=== PATIENT | male | born 1975 | race Caucasian/White ===

== ENCOUNTER 2025-10-03 09:56 | Outpatient (AMB) | payer OTHER, SELFPAY ==
--- NOTE | 2025-10-03 10:06 | A.OFFPC_ITS ---
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 // Cholesterol Intake Note: New patient presents with concerns about cholesterol Sports Umpire Required: No Accompanied by: Self / Same As Patient Allergies amoxicillin Allergy (Intermediate, Verified 10/03/25 10:11) Hives Tobacco use date assessed: 10/03/25 Dental Screening Dental Screen Date: 10/03/25 Did you have a dental visit in the last 12 months?: No Did you have a dental problem in the last 6 months where you did not have access to dental care?: No Was dental information given to patient?: Patient has dentist HPI HPI Comments History of Present Illness Details History of Present Illness The patient is a 50 year old individual presenting to [facility] with a new primary care physician. History of umbilical hernia repair: The patient has a history of an umbilical hernia repair at an unspecified time. The patient reports that no mass was found during the procedure, only a stone type thing. The patient notes the area has shifted and is a cosmetic issue, but it does not cause any pain. Colon cancer screening: The patient is 50 years old and has never had a colonoscopy but would like to undergo screening. The patient denies any family history of colon cancer or polyps. History of Lyme disease: The patient reports a history of severe Lyme disease in 2011, which was treated with doxycycline. The diagnosis was delayed for 10 days, during which time meningitis was considered. The patient experienced excruciating pain from head to toe and in every joint, preventing sleep for seven days. From 2011 to 2019, the patient would experience flare-ups, where a common cold would escalate into more severe, flu-like symptoms. The patient has not had a significant flare-up in a long time. Tobacco Use: The patient reports smoking cigars for the past three years. The patient has a prior history of smoking half a pack of cigarettes per day for 15-20 years, but quit a long time ago in 2007. Surgical History: - Umbilical hernia repair Medications: - The patient denies taking any medicati ons. Social History: - Tobacco Use: The patient smokes cigars occasionally and has been for about three years. - The patient is a former cigarette smok er, having smoked for 15-20 years before quitting in 2007. - Occupation: The patient works in [employer] a [employer] from home and describes the job as mostly sedentary. - Exercise: The patient reports getting up to do jumping jacks during the w orkday. Family History: - Mother: History of unspecified cancer, but has been in remission for 20 years; she is 85 years old. - Father: No history of cancer. - Siblings: A sister had a normal colono scopy at age 40 or 45. - Denies any family history of colon can cer or polyps. Past Medical History - Lyme Disease: Diagnosed in 2011, treat ed with doxycycline. The patient experienced recurrent flare-ups until about 2019. - Lymphadenitis: Had an infected lymph n ode which required drainage. - Denies any history of hospitalization other than for surgery. Health Maintenance - Colon Cancer Screening: The patient is 50 and is due for screening. - Lab Work: Comprehensive labs will be d rawn to establish a baseline of health. [facility] Medical History (Updated 10/03/25 @ 10:42 by Eric Diggs MD) Tobacco use History of Lyme disease Umbilical hernia Surgical History (Updated 10/03/25 @ 10:42 by Eric Diggs MD) H/O umbilical hernia repair Family History (Updated 10/03/25 @ 10:15 by Ganesh Woodson CMA) Mother Colon cancer Mother No problems noted. 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 1. Little interest or pleasure in doing things: not at all 2. Feeling down, depressed, or hopeless: not at all 3. Trouble falling or staying asleep, or sleeping too much: several days 4. Feeling tired or having little energy: several days 5. Poor appetite or overeating: not at all 6. Feeling bad about yourself - or that you are a failure or have let yourself or your family down: not at all 7. Trouble concentrating on things, such as reading the newspaper or watching television: not at all 8. Moving or speaking so slowly that other people could have noticed. Or the opposite - being so fidgety or restless that you have been moving around a lot more than usual: not at all 9. Thoughts that you would be better off or of hurting yourself in some way: not at all Total score: 2 Depression Screening Interpretation: Negative Depression Screening Done: Yes 24463 - PHQ-9 Billing: Yes Source: Developed by Drs. Hood Chong, Shilpa Silva, Ryan Alcaraz and colleagues, with an educational tia from [employer]. Thrive Questionnaire Date Thrive assessed: 10/03/25 I am a: Patient What is your living situation today?: I have a steady place to live Within the past 12 months, did the food you bought not last and you didn't have the money to get more?: Never true Within the past 12 months, did you worry whether your food would run out before you got money to buy more?: Never true Do you have trouble paying for medicines?: No Do you have trouble getting transportation to medical appointments?: No Do you have trouble paying your heating and electricity bill?: No Do you have trouble taking care of your child, family member or friend?: No Do you have trouble with day-to-day activities such as bathing, preparing meals, shopping, managing finances, etc.?: No Are you currently unemployed and looking for a job?: No Are you interested in more education?: Yes Please select the resources that you would like help with: None Currently or been in a relationship where the following occur: No concerns repo rted THRIVE Score: 0 AUDIT C Alcohol Use Questionnaire (AUDIT-C) 1. How often do you have a drink containing alcohol?: 2-3 times a week 2. How many drinks containing alcohol do you have on a typical day when you are drinking?: 1 or 2 3. How often do you have six or more drinks on one occasion?: Weekly Total Score: 6 CHECO-7 AMB Questionnaire CHECO-7 Date CHECO - 7 assessed: 10/03/25 Feeling nervous, anxious, or on edge: 0 = Not at all Not being able to stop or control worryin = Not at all Worrying too much about different things: 0 = Not at all Trouble relaxin = Not at all Being so restless that it is hard to sit still: 0 = Not at all Becoming easily annoyed or irritable: 0 = Not at all Feeling afraid as if something awful might happen: 0 = Not at all Total CHECO-7 score (0-4 normal; 5-9 mild; 10-14 moderate; 15-21 severe): 0 Source: Developed by Drs. Hood Chong, Shilpa Silva, Ryan Alcaraz and colleagues, with an educational tia from [employer]. CHECO-7 Assessment Billing CHECO-7 Assessment Tool: CHECO-7 Assessment 27533 Review of Systems Narrative Review of Systems - General: Denies current pain. - Neurological: Reports a history of severe headaches and generalized joint pain associated with a past Lyme disease diagnosis. - Sleep: Reports waking up during the night but is able to fall back asleep. - Gastrointestinal: Reports normal bowel movements. Denies constipation. - Genitourinary: Reports normal urination. 10-point ROS reviewed and negative except as noted in HPI Physical exam (Primary Care) Vital Signs: Last Vital Signs Temp 97.6 F 10/03/25 10:15 Pulse 90 10/03/25 10:15 Resp 16 10/03/25 10:15 BP 115/72 10/03/25 10:15 Pulse Ox 97 10/03/25 10:15 Oxygen Delivery Method Room Air 10/03/25 10:15 BMI result Body Mass Index 23.9 Tobacco/Smoking Status: Tobacco use Status Tobacco use date assessed 10/03/25 10/03/25 10:18 Patient Tobacco Use Status Never used Tobacco 10/03/25 10:18 e-Cigarette/Vaping Use Never Used 10/03/25 10:18 PHQ-9: PHQ-9 Score PHQ-9: Total score 2 10/03/25 10:10 Depression Screening Interpretation: Negative Thrive Assessment: Date of Thrive Assessment Date Thrive assessed 10/03/25 10/03/25 10:10 Currently or been in a relationship where the following occur: No concerns reported Narrative Physical Exam General: Well-appearing, in no acute distress. Vital signs: Within normal limits. HEENT: Normocephalic, atraumatic. PERRLA, EOMI. Conjunctiva clear, sclera anicteric. Oropharynx clear, mucous membranes moist. TMs intact bilaterally. Neck: Supple, no lymphadenopathy, no thyromegaly, no JVD or carotid bruits. A small lymph node noted on the left side. Cardiovascular: RRR, normal S1/S2, no murmurs, rubs, or gallops. Peripheral pulses 2+ and symmetric. No edema. Varicose veins noted on the left leg and ankle. Respiratory: Lungs clear to auscultation bilaterally, no wheezes, rales, or rhonchi. Normal effort. Abdomen: Soft, non-tender, non-distended. Normoactive bowel sounds. No hepatosplenomegaly, no masses. Umbilical hernia repair site noted. MSK: Full range of motion, no joint swelling or deformity. Normal gait. Skin: Warm, dry, intact. No rashes, lesions, or pallor. Neuro: Alert and oriented x3. Cranial nerves II-XII intact. Strength 5/5 throughout. Sensation intact. Reflexes 2+ symmetric. Normal coordination and gait. Psych: Appropriate mood and affect. Normal judgment and insight. Coding Level of Care Code New Pt Level 4 (39959) Diagnoses Umbilical hernia K42.9 History of Lyme disease Z86.19 Tobacco use Z72.0 H/O umbilical hernia repair Z98.890; Z87.19 Screening for malignant neoplasm of colon Z12.11 Additional Codes CHECO-7 Assessment Billing - CHECO-7 Assessment Tool: CHECO-7 Assessment 74761 ([id number]) PHQ-9 - 06105 - PHQ-9 Billing: Yes ([id number]) Assessment & Plan Assessment & Plan (1) Umbilical hernia: Code(s): K42.9 - Umbilical hernia without obstruction or gangrene Category: Medical (2) History of Lyme disease: Code(s): Z86.19 - Personal history of other infectious and parasitic diseases Category: Medical (3) Tobacco use: Code(s): Z72.0 - Tobacco use Category: Social Hx (4) H/O umbilical hernia repair: Code(s): Z98.890 - Other specified postprocedural states; Z87.19 - Personal history of other diseases of the digestive system Category: Surgical (5) Screening for malignant neoplasm of colon: Code(s): Z12.11 - Encounter for screening for malignant neoplasm of colon Plan Consent The options, risks, and benefits of colon cancer screening were discussed with the patient. The alternatives of a traditional colonoscopy, involving bowel preparation and sedation, and an at-home stool-based DNA test (Cologuard) were reviewed. It was explained that if the Cologuard test is positive, a full colonoscopy would then be required. The patient provided verbal consent to pr oceed with the Cologuard test. The patient also consented to comprehensive lab testing. Patient was informed and verbally consented to the use of an ambient scribe for clinic note documentation during this visit. Plan 1. Establishment Of Care And Health Maintenance - A comprehensive lab panel will be ordered, including a complete blood count, comprehensive metabolic panel, hemoglobin A1c, hepatitis B and C, HIV, a lipid panel, magnesium, syphilis screen, thyroid function, urinalysis, B12, folate, and vitamin D. - The patient will follow up in two weeks to review the lab results. 2. Colon Cancer Screening - After discussing the options of a traditional colonoscopy versus an at-home stool test, the patient chose to proceed with Cologuard. - An order for the Cologuard test has been placed. - The patient was informed that if the Cologuard test is positive, a follow-up colonoscopy will be necessary. 3. Recurrent Umbilical Hernia - The patient is bothered by the cosmetic appearance of the previous umbilical hernia repair site but denies pain. - A referral to a general surgeon for a second opinion was offered, but the patient declined at this time. 4. Tobacco Use - Acknowledged the patient's current cigar use and history of cigarette smoking. - Will continue to monitor and address at future visits. 5. Cervical Lymphadenopathy - A small left cervical lymph node was found on examination. - The planned CBC will help evaluate this finding. - The patient has a history of reactive lymphadenopathy from Lyme disease flare- ups. Discussion Notes I discussed with the patient the plan to establish care, focusing on preventative health. I reviewed the options for colon cancer screening, detailing both the traditional colonoscopy and the Cologuard at-home test. I explained that Cologuard is repeated every three years if negative, but a positive result necessitates a full colonoscopy for further evaluation. The patient understood the options and preferred to start with the Cologuard test. I informed the patient that I will be ordering a comprehensive panel of blood and urine tests to get a baseline overview of the patient's health. We will review these results at a follow-up visit in two weeks. I also addressed the patient's concern about the cosmetic appearance of a prior umbilical hernia repair and offered a referral to a general surgeon, which the patient declined at this time. Patient Instructions - Please go to the lab next door to have your blood drawn for the ordered tests. - A Cologuard test kit will be mailed to your house. Please follow the instructions provided, which include watching a short video, to collect and mail back the sample. - Please schedule a follow-up appointment in two weeks to discuss your lab results. - If you have any new concerns or issues before your next visit, please contact the office. Medical Decision Making This is a 50-year-old individual presenting [facility] care. The primary focus of the visit was on health maintenance and screening. Given the patient's age and lack of prior screening, colon cancer screening is indicated. After discussing the benefits and drawbacks of both colonoscopy and Cologuard, t he patient's preference for a non-invasive screening method was respected, and a Cologuard test was ordered. It was made clear that a positive result would require a follow-up diagnostic colonoscopy. A comprehensive lab panel was ordered to establish a baseline of the patient's health status, covering hematologic, metabolic, infectious, and nutritional markers. The patient's history of Lyme disease and a newly palpated left cervical lymph node will be considered in the context of the CBC results. The patient's cosmetic concern regarding a prior umbilical hernia repair was acknowledged; as the patient is asymptomatic and does not desire intervention currently, a watchful waiting approach is appropriate. The patient's ongoing tobacco use was noted and will be a point for discussion and potential intervention in future visits. Total Time Statement 30 min Total time spent caring for the patient today includes pre-visit chart review, documentation, review of laboratory and diagnostic imaging results, medication reconciliation, medically necessary evaluation, counseling on diagnoses, care coordination, ordering appropriate tests and medications, review of tests performed by other providers, reporting test results to the patient, and communication with other healthcare providers. Orders: Orders Hepatitis B Surface Antigen Today Z13.9 - Encounter for screening, unspecified Syphilis Screen Today Z13.9 - Encounter for screening, unspecified Comprehensive Met. Panel Today Z13.9 - Encounter for screening, unspecified HIV Ab/Ag Today Z13.9 - Encounter for screening, unspecified Vitamin D 1,25 dihydroxy Today Z13.9 - Encounter for screening, unspecified Hepatitis B Surface Antibody Today Z13.9 - Encounter for screening, unspecified Complete Blood Count Auto Diff Today Z13.9 - Encounter for screening, unspecified Hepatitis C Antibody Today Z13.9 - Encounter for screening, unspecified TSH reflex Free T4 Today Z13.9 - Encounter for screening, unspecified UA CC w/rflx Micro + Cult Today Z13.9 - Encounter for screening, unspecified Lipid Panel Today Z13.9 - Encounter for screening, unspecified Vitamin B12 and Folate Today Z13.9 - Encounter for screening, unspecified Hemoglobin A1c Today Z13.9 - Encounter for screening, unspecified Magnesium Today Z13.9 - Encounter for screening, unspecified Referrals Cologuard Test Z12.11 - Encounter for screening for malignant neoplasm of colon, Z12.12 - Encounter for screening for malignant neoplasm of rectum
[2025-10-03 10:15] VITALS: BP 115/72; PULSE 90; RESP 16; TEMP 36.4; O2SAT 97; BMI 23.9
== END 2025-10-03 10:35 | disposition home or self-care (01) ==
LOC: HO.HMCFMS 09:57
PROVIDERS: PCP Student in an Organized Health Care Education/Training Program; Visit Provider Student in an Organized Health Care Education/Training Program
DX: K42.9 Umbilical hernia without obstruction or gangrene (principal); Z86.19 Personal history of other infectious and parasitic diseases; Z72.0 Tobacco use; Z98.890 Other specified postprocedural states; Z87.19 Personal history of other diseases of the digestive system; Z12.11 Encounter for screening for malignant neoplasm of colon

== ENCOUNTER 2025-10-03 09:56 | Outpatient (REF) | payer OTHER, SELFPAY ==
[2025-10-03 13:16] LABS: MANUAL DIFF FLAG NO
[2025-10-03 13:22] LABS: Hematocrit 49.0 % (42.0-52.0); Hemoglobin 16.3 g/dl (14.0-18.0); Imm Gran Abs Auto 0.01 X10*3/uL (0.00-0.03); Imm Gran Pct Auto 0.1 % (0.0-0.4); Lymphocytes Absolute Auto 2.4 X10*3/uL (1.2-4.9); Mean Corpuscular HGB Conc 33.3 g/dl (31.0-36.0); Mean Corpuscular Hemoglobin 30.5 pg (27.0-33.0); Mean Corpuscular Volume 91.6 fL (80.0-98.0); NRBC Abs Auto 0.000 X10*3/uL (0.0-0.012); NRBC Pct Auto 0.0 /100WBC (0.0-0.2); Platelet Count 229 X10*3/uL (160-400); Red Blood Count 5.35 X10*6/uL (4.60-5.80); White Blood Count 7.1 X10*3/uL (4.8-10.8)
[2025-10-03 13:35] LABS: Appearance Urine Clear; Glucose Urine UA Negative (Negative); PH 5.5 (5.0-9.0); Specific Gravity - Urine 1.025 (1.005-1.025)
[2025-10-03 14:20] LABS: Alanine Aminotransferase 53 U/L (0-40); Albumin Level 4.9 g/dL (3.5-5.0); Alkaline Phosphatase 72 U/L (39-117); Anion Gap 12 (12-20); Aspartate Amino Transferase 42 U/L (5-37); Blood Urea Nitrogen 15 mg/dL (9-16); Calcium 9.6 mg/dL (8.4-10.2); Carbon Dioxide 27 mmol/L (22-29); Chloride 106 mmol/L (96-108); Cholesterol 222 mg/dL (<200); Estimated Glomerular Filt Rate > 60; HDL Cholesterol 81 mg/dL (>40); Magnesium 2.3 mg/dL (1.6-2.6); Potassium 4.5 mmol/L (3.3-5.1); Sodium 140 mmol/L (135-145); Total Protein 7.5 g/dL (6.5-8.0); Triglycerides 151 mg/dL (<150)
[2025-10-03 14:34] LABS: Folate 7.4 ng/mL (> or = 4.0); Vitamin B12 214 pg/mL (200-900)
[2025-10-04 06:32] LABS: Syphilis Screen Nonreactive (Nonreactive)
[2025-10-04 07:02] LABS: HBS Num1 0.47 mIU/mL (0-7.99); HBsAGNum1 0.35 S/CO (0.00-0.99); HIV Num 1 0.06 S/CO (0.00-0.99); Hepatitis B Surface Antigen Negative (Negative); ~HepC Num1 0.09 S/CO (0.00-0.79); ~Hepatitis B Surface Antibody NONREACTIVE (Nonreactive); ~Hepatitis C Antibody Nonreactive (Nonreactive)
[2025-10-07 14:23] LABS: VITAMIN D (1,25 OH) D3 54 pg/mL; Vit D (1,25-Dihydroxy) Total 54 pg/mL (18-72); Vitamin D (1,25 OH) D2 <8 pg/mL
== END 2025-10-03 09:57 | disposition home or self-care (01) ==
LOC: HO.HKASLDS 09:56
PROVIDERS: PCP Student in an Organized Health Care Education/Training Program; Visit Provider Student in an Organized Health Care Education/Training Program
DX: Z13.9 Encounter for screening, unspecified (principal); Z12.11 Encounter for screening for malignant neoplasm of colon; K42.9 Umbilical hernia without obstruction or gangrene; F12.90 Cannabis use, unspecified, uncomplicated; Z98.890 Other specified postprocedural states; Z87.19 Personal history of other diseases of the digestive system; Z86.19 Personal history of other infectious and parasitic diseases
CPT/HCPCS: 36415; 80053; 80061; 81003; 82607; 82652; 82746; 83036; 83735; 84443; 85025; 86706; 86780; 86803; 87340; 87389; 96127

== ENCOUNTER 2025-10-18 09:52 | Outpatient (AMB) | payer OTHER, SELFPAY ==
[2025-10-18 10:00] VITALS: BP 117/69; PULSE 87; TEMP 36.7; O2SAT 97; BMI 24.2
--- NOTE | 2025-10-18 10:00 | MHC.PC.OV ---
Vital Signs 10/18/25 10:00 Height 6 ft 2 in Weight 188 lb 2 oz BMI 24.2 BP 117/69 Blood Pressure Location Lt brachial Position Sitting Pulse 87 Pulse Source Pulse Oximeter Temp 98.0 F Temp Source Oral Pulse Oximetry (%) 97 Oxygen Delivery Method Room Air Intake Visit Reasons: 2 week follow up Accompanied by: Self / Same As Patient Allergies amoxicillin Allergy (Intermediate, Verified 10/18/25 10:01) Hives Tobacco use date assessed: 10/18/25 Dental Screening Dental Screen Date: 10/18/25 Did you have a dental visit in the last 12 months?: Yes Was dental information given to patient?: Patient has dentist [facility] Medical History Elevated liver enzymes Tobacco use History of Lyme disease Umbilical hernia Surgical History H/O umbilical hernia repair Family History Mother Colon cancer Mother No problems noted. 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 1. Little interest or pleasure in doing things: not at all 2. Feeling down, depressed, or hopeless: not at all 3. Trouble falling or staying asleep, or sleeping too much: several days 4. Feeling tired or having little energy: several days 5. Poor appetite or overeating: not at all 6. Feeling bad about yourself - or that you are a failure or have let yourself or your family down: not at all 7. Trouble concentrating on things, such as reading the newspaper or watching television: not at all 8. Moving or speaking so slowly that other people could have noticed. Or the opposite - being so fidgety or restless that you have been moving around a lot more than usual: not at all 9. Thoughts that you would be better off or of hurting yourself in some way: not at all Total score: 2 Depression Screening Interpretation: Negative Depression Screening Done: Yes 50659 - PHQ-9 Billing: Yes Source: Developed by Drs. Hood Chong, Shilpa Silva, Ryan Alcaraz and colleagues, with an educational tia from [employer]. Thrive Questionnaire Date Thrive assessed: 10/18/25 I am a: Patient What is your living situation today?: I have a steady place to live Within the past 12 months, did the food you bought not last and you didn't have the money to get more?: Never true Within the past 12 months, did you worry whether your food would run out before you got money to buy more?: Never true Do you have trouble paying for medicines?: No Do you have trouble getting transportation to medical appointments?: No Do you have trouble paying your heating and electricity bill?: No Do you have trouble taking care of your child, family member or friend?: No Do you have trouble with day-to-day activities such as bathing, preparing meals, shopping, managing finances, etc.?: No Are you currently unemployed and looking for a job?: No Are you interested in more education?: Yes Please select the resources that you would like help with: None Currently or been in a relationship where the following occur: No concerns reported THRIVE Score: 0 AUDIT C Alcohol Use Questionnaire (AUDIT-C) 1. How often do you have a drink containing alcohol?: 2-3 times a week 2. How many drinks containing alcohol do you have on a typical day when you are drinking?: 1 or 2 3. How often do you have six or more drinks on one occasion?: Weekly Total Score: 6 CHECO-7 AMB Questionnaire CHECO-7 Date CHECO - 7 assessed: 10/18/25 Feeling nervous, anxious, or on edge: 0 = Not at all Not being able to stop or control worryin = Not at all Worrying too much about different things: 0 = Not at all Trouble relaxin = Not at all Being so restless that it is hard to sit still: 0 = Not at all Becoming easily annoyed or irritable: 0 = Not at all Feeling afraid as if something awful might happen: 0 = Not at all Total CHECO-7 score (0-4 normal; 5-9 mild; 10-14 moderate; 15-21 severe): 0 Source: Developed by Drs. Hood Chong, Shilpa Silva, Ryan Alcaraz and colleagues, with an educational tia from [employer]. CHECO-7 Assessment Billing CHECO-7 Assessment Tool: CHECO-7 Assessment 79443 Physical exam (Primary Care) Tobacco/Smoking Status: Tobacco use Status Tobacco use date assessed 10/03/25 10/03/25 10:18 Patient Tobacco Use Status Never used Tobacco 10/03/25 10:18 e-Cigarette/Vaping Use Never Used 10/03/25 10:18 Depression Screening Interpretation: Negative Thrive Assessment: Date of Thrive Assessment Date Thrive assessed 10/03/25 10/03/25 10:10 Currently or been in a relationship where the following occur: No concerns reported Office Procedures Flu Questionnaire Does the patient have a severe egg allergy?: No Does the patient have severe life threatening allergies?: No Does the patient have a fever or illness today?: No Has the patient ever had Guillain-[place] Syndrome?: No Has the patient ever had any past reaction to a flu shot?: No Immunizations Fluarix [id number] (PF) 45 mcg (15 mcg x 3)/0.5 mL IM syringe Performing Provider: Eric Diggs MD Performing Location: [facility] Documented (not given) by: Mia Tarango CMA on 10/18/25 10:11 Reason Not Given: Adverse Reaction- Previous Coding Additional Codes PHQ-9 - 58901 - PHQ-9 Billing: Yes ([id number]) CHECO-7 Assessment Billing - CHECO-7 Assessment Tool: CHECO-7 Assessment 46331 ([id number]) Assessment & Plan Assessment & Plan Orders: Orders Influenza [id number] Immunization Today Z23 - Encounter for immunization
== END 2025-10-18 10:39 | disposition home or self-care (01) ==
LOC: HO.HMCFMS 09:53
PROVIDERS: Visit Provider Student in an Organized Health Care Education/Training Program
DX: Z23 Encounter for immunization (principal)

== ENCOUNTER → 2025-10-18 09:52 | Outpatient (BNVA) | payer OTHER, SELFPAY | PROVIDERS: Visit Provider Student in an Organized Health Care Education/Training Program | DX: R74.8 Abnormal levels of other serum enzymes (principal); E78.5 Hyperlipidemia, unspecified; E53.8 Deficiency of other specified B group vitamins; Z87.891 Personal history of nicotine dependence | CPT/HCPCS: 90471; 96127 ==